=== PATIENT | female | born 1960 | race Caucasian/White ===

== ENCOUNTER 2023-12-06 18:01 | Inpatient (IN) | payer MEDICARE, OTHER, SELFPAY ==
[2023-12-06 12:05] VITALS: BP 127/88
[2023-12-06 12:42] LABS: % Eosinophils 0.2 % (0-6); % Immature Granulocytes 0.4 % (0-0.5); % Lymphocytes 27.3 % (20.5-51.1); % Monocytes 5.8 % (1.7-9.3); % Neutrophils 66.3 % (42.2-75.2); Absolute Lymphocytes 1.4 10^3/uL (1.2-3.4); Absolute Monocytes 0.3 10^3/uL (0.1-0.6); Absolute Neutrophils 3.3 10^3/uL (1.4-6.5); Hematocrit 38.7 % (37.0-47.0); Hemoglobin 13.9 g/dL (12.0-16.0); Mean Corp Hgb Conc. 35.9 g/dL (33.0-37.0); Mean Corpuscular Hgb 30.5 pg (27.0-31.0); Mean Corpuscular Volume 85.1 fL (81.0-99.0); Nucleated Red Blood Cells % 0 %; Platelet Count 142 10^3/uL (130-400); Red Blood Cell Count 4.55 10^6/uL (4.20-5.40); Red Cell Dist. Width 16.3 % (11.5-14.5)
[2023-12-06 12:55] LABS: ALT (SGPT) 258 U/L (0-35); AST (SGOT) 385 U/L (14-36); Albumin 4.2 g/dl (3.5-5.0); Alkaline Phosphatase 118 U/L (38-126); Blood Urea Nitrogen 39 mg/dl (7-17); Carbon Dioxide 26 mmol/L (22-30); Chloride 99 mmol/L (98-107); Glucose 76 mg/dl (70-99); Potassium 3.6 mmol/L (3.5-5.1); Sodium 131 mmol/L (135-145); Total Bilirubin 0.9 mg/dl (0.2-1.3); Total Protein 6.6 g/dl (6.3-8.2); eGFR > 60.00
[2023-12-06 14:43] VITALS: BMI 27.2
--- NOTE | 2023-12-06 15:34 | ED.GENMED ---
History of Present Illness
General
Chief Complaint: Weight Changes
Source: patient and family
Time Seen by Provider: 12/06/23 14:54
History of Present Illness
History of Present Illness:
63yoF with a history of paranoid schizophrenia with anorexia presenting with her for evaluation of malnutrition. Patient has a history of malnutrition and has had a feeding tube placed in past. She had her feeding tube removed in August 2023
as patient demanded to have it removed. She was about 104 pounds at the time the feeding tube was removed. She has lost 30 pounds since that time and is currently 74 pounds. Patient has very poor PO intake. She denies any vomiting. Patient was seen
by her PCP and advised to go to the ED for evaluation.
Past History
Past History
ED Past Medical History: Hypothyroidism and Psychiatric (Paranoid schizophrenia, hypothyroidism)
ED Past Surgical History: Other
Social History
Tobacco: Former smoker
Alcohol: None
Drug: None
Personal:
Living: with family
Employment: Retired
Family History
Family History: Other (Noncontributory)
Phy Exam
Physical Exam
Physical Exam:
Frail, cachectic female, ill appearing. Non-toxic.
General Physical Exam
General age: appears older than age
General Skin: warm and dry
General Habitus: cachetic and failure to thrive
General Mental: alert
Cardiovascular Exam
Cardiovascular Exam: regular rate/rhythm and no murmur
Pulmonary Exam
Pulmonary Exam: lungs clear, no respiratory distress and no crackles
Musculoskeletal Exam
Musculoskeletal Exam: other (Tardive dyskinesia noted)
Scores
Heart Failure Risk
Heart Failure Risk Score: Not Applicable
Course
Orders/Labs/Results
Orders:
Orders
12/06/23 Breakfast
Regular
At Your Request: Limited Participation
12/06/23 12:20
Complete Blood Count/With Diff Urgent
Comprehensive Metabolic Panel Urgent
Free T4 Urgent
Magnesium Urgent
Phosphorus Urgent
Comment: MAG & PHOS ADDED ON BY FLOOR 3:30PM 12-06-23
TSH Reflex To Free T4 Urgent
Comment: TSH REFLEX ADDED ON BY FLOOR 4:50PM 12-06-23
12/06/23 15:33
Electrocardiogram (*1) Urgent
Reason for Study: Other
Other Reason for Exam: malnutrition
EKG- Treatment ONCE
0.9% Sodium Chloride 500 ml [Nss] 500 ml IV BOLUS
12/06/23 15:34
Add On- LAB Urgent
Tests Added?: magnesium, phosphorus
12/06/23 16:40
Louise Hugger [Louise Hugger-Treatment] ONCE
Patient's goal temperature:: 97 F
Additional Instructions:: Temperature and skin assessment per unit protocol
12/06/23 16:49
Add On- LAB Routine
Tests Added?: TSH w/Reflex
12/06/23 17:23
Admit/Transfer Patient As Directed
Co-Sign Provider:
Level of Care: Inpatient admission
Assign to:: Medical/Surgical
Physician / Group: Margo
Diagnosis: Malnutrition
Reason for Hospitalization: Malnutrition
Expected length of stay greater than two midnights?: Yes
ELOS- Estimated Length of Stay in days: 3
I certify the patient meets the requirements for IP care: Yes
12/06/23 17:24
Code Status As Directed
Resuscitation Status: Do not resuscitate
Reached after discussion with pt or family/Healthcare POA: Yes
DNR Bracelet Application ONCE
12/06/23 18:19
Acetaminophen [Tylenol] 650 mg PO Q4HPRN PRN
12/06/23 18:19
Case Management Consult ONCE
Case Management Consult: Hospice
Hospice: Evaluation and treat
DIETARY CONSULT Routine
Reason for Consult: Malnutrition
PSYCHIATRY CONSULT Routine
Consulting Provider: Mukul Echevarria
Was physician already notified: Yes
Activity As Directed
Activity Level: Out of Bed-Early Mobility
With Assistance
I&O [Intake/ Output] As Directed
Frequency: q12h
Pneumatic Compression Sleeves As Directed
Type: Knee high
Vital Signs As Directed
Frequency: Per unit guidelines
Warming [place] [Heating/Cooling [place]] As Directed
Mode:: Automatic
Type of thermoregulation:: Heating
PATIENT'S Goal Temperature:: 96.8 F (36 C)
Comments/Additional Instructions:: Temperature and skin assessment per unit protocol
Weight As Directed
Frequency: Daily
Ot Eval And Treat Routine
Pt Eval And Treat Routine
Activity Level: Out of Bed-Early Mobility
DX Deep Vein Thrombosis Video Routine
12/06/23 19:00
Dextrose 5%/0.9%Sodchl 1000 ml [D5/0.9% Sodium Chloride] 1,000 ml POTASSIUM PHOSPHATE 1mEq=0.7mM [Potassium Phosphate] 10 meq IV 80 mls/hr
12/06/23 22:00
Risperidone [Risperdal] 6 mg PO HS
12/07/23 06:00
Complete Blood Count/No Diff IN AM
Comprehensive Metabolic Panel IN AM
Magnesium IN AM
Phosphorus IN AM
12/07/23 08:00
Cholecalciferol (Vitamin D3) [VITAMIN D3 (cholecalciferol)] 25 mcg PO DAILY
Multivitamin [Theragran] 1 tablet PO DAILY
12/07/23 12:00
Levothyroxine [Synthroid] 125 mcg PO SUTUTHSA@1200
12/08/23 12:00
Levothyroxine [Synthroid] 150 mcg PO MOWEFR@1200
Abnormal Lab Results
12/06/23
12:20
RDW 16.3 H %
(11.5-14.5)
MPV 11.0 H fL
(7.4-10.4)
Sodium 131 L mmol/L
(135-145)
BUN 39 H mg/dl
(7-17)
Phosphorus 2.0 L mg/dl
(2.5-4.5)
AST 385 H U/L
(14-36)
ALT 258 H U/L
(0-35)
TSH (Reflex) 145.00 H uIU/ml
(0.47-4.68)
Free T4 0.45 L ng/dl
(0.78-2.19)
12/06/23 12:20
12/06/23 12:20
Vital Signs
Initial and Last Documented VS:
Initial Vital Signs
Pulse Resp BP Pulse Ox
64 16 127/88 93
12/06/23 12:05 12/06/23 12:05 12/06/23 12:05 12/06/23 12:05
Last Documented Vital Signs
Temp Pulse Resp BP Pulse Ox
95.2 F L 65 16 87/57 98
12/06/23 19:24 12/06/23 23:04 12/06/23 23:04 12/06/23 23:04 12/06/23 23:04
MDM/Problems Addressed
Differential Diagnosis Includes:
63yoF presenting for malnutrition. Hx of paranoid schizophrenia and anorexia. Weight loss of 30 pounds over the past 3 months since her feeding tube was removed. Sent to ED by PCP. She is severely malnourished on exam. Rectal temperature is 94.8.
Remainder of vitals are stable. Differential diagnosis includes but is not limited to: malnutrition, failure to thrive, dehydration, electrolyte abnormality
Labs obtained in triage. Transaminitis noted with AST of 385 and ALT of 258. Sodium 131. Remainder of electrolytes and creatinine normal. Will place on louise hugger, order IV fluid bolus, and admit for further management.
*Critical Care Note
Total Time (30-74mins, 75-104mins- exclusive of procedures): Not Applicable
ED Attending Note
-
Portions of this chart may have been created with voice recognition software.� Occasional wrong word or��sound alike� substitutions may have occurred due to the inherent limitations of voice recognition software.
Discharge Plan
Departure
Patient Disposition: Admit
Date of Disposition: 12/06/23
Time of Disposition: 17:03
Presentation/result/management discussed w/ accepting MD/DO: Hospitalist
Discharge Problem:
Malnutrition, Hypothermia, Transaminitis
Interventions
Interventions:
*General Assessment Last Done: 12/06/23 14:43
*Neglect/Abuse Screening Last Done: 12/06/23 14:43
ED- Fall Risk Assessment Last Done: 12/06/23 14:43
*Nursing Disposition Last Done: 12/06/23 18:17
Discharge Date and Time
Discharge Date/Time: 12/06/23 18:18
[2023-12-06 15:59] VITALS: BP 130/94
[2023-12-06 16:05] LABS: Magnesium 2.2 mg/dl (1.6-2.3)
[2023-12-06 16:54] VITALS: BMI 12.3
[2023-12-06] MEDS: NSS 500 IV (16:55)
--- NOTE | 2023-12-06 17:26 | W.PN.UPDATE ---
Update Note
Progress Note Update
I saw and examined the patient.
The SHOTGUN SHELL ASSEMBLY MACHINE OPERATOR or PA's note was reviewed and I agree with the note.
Comment: 63-year-old female who presents with weight loss.
130/94, 50, 18, 94.8 �F, 97% RA
NAD, awake and alert, appears chronically ill and severely malnourished/cachectic/emaciated
CN2-12 intact, Tardive dyskinetic movements of the mouth and tongue
EOMI/PERRLA, no scleral icterus
jose, reg rhythm, normal S1/S2
CTAB anteriorly
+BS/soft/NT/ND
Severe protein calorie malnutrition due to paranoid schizophrenia and anorexia nervosa:
-Patient had a PEG tube which was removed because, as per her , she 'threatened to pull it out.'
-Recently lost 30 pounds
-Refusing reinsertion of PEG tube
-Consult psychiatry
-In the ER the patient confirms that she would like to be DNR. This was witnessed by the who agrees. I specifically reviewed CPR, defibrillation/cardioversion, intubation with mechanical ventilation, and acute vasoactive medications and
the patient reported that she did not want any of these methods of resuscitation.
-IVF support (with K-phos for hypophosphatemia)
-c/s hospice
Hyponatremia, mild
--- NOTE | 2023-12-06 17:37 | HPS.HSE ---
Family Physician
-
Family Physician: Nuvia Mccartney
Chief Complaint
-
Weight Loss
History of Present Illness
Patient is a 63-year-old female past medical history of paranoid schizophrenia, anorexia nervosa and hypothyroidism who presents with weight loss. Patient was admitted here at [facility] in August 2022 at which time she had a feeding tube
placed due to severe malnutrition. Due to patient's psychiatric issues she insisted on having the PEG tube removed. Feeding tube was removed in August 2023. Since that time patient has lost approximately 30 pounds. She saw her primary care
provider today in the office who sent her to the emergency department for evaluation. Patient denies abdominal pain, nausea, or vomiting.
Medical History
Past Medical History
Past Medical History: Reports Other
Additional Past Medical History:
Paranoid Schizophrenia / Anorexia Nervosa
Hypothyroidism
Severe Protein Calorie Malnutrition
Past Surgical History: Reports None
Social History
Tobacco: Former Smoker
Personal:
Living: With Family
Family History
Family History: Not pertinent
Allergies / Home Medications
Allergies reflects when Allergies were last updated in [facility].
Home Medications with original date entered in [facility]
Allergy/Medication List:
Allergies
Allergy/AdvReac Type Severity Reaction Status Date / Time
No Known Allergies Allergy Verified 12/06/23 12:09
Home Medications
risperidone 2 mg tablet (Risperdal) 6 mg PO HS 08/11/22
cholecalciferol (vitamin D3) 25 mcg (1,000 unit) tablet 25 mcg PO DAILY 12/06/23
levothyroxine 125 mcg tablet (Synthroid) 125 mcg PO SUTUTHSA@119912/06/23
levothyroxine 150 mcg tablet 150 mcg PO MOWEFR@1200 12/06/23
therapeutic multivitamin 1 tab PO DAILY 12/06/23
Review of Systems
-
A 12 point ROS was completed and negative except as noted: Yes
Constitutional: Denies Fever or Chills
Respiratory: Denies Cough or Trouble Breathing
Cardiac: Denies Chest Pain or Palpitations
Abdomen/GI: Reports See HPI
Physical Exam
Vital Signs
Vital Signs
Temp Pulse Resp BP Pulse Ox
94.8 F L 50 18 130/94 97
12/06/23 16:15 12/06/23 15:59 12/06/23 15:59 12/06/23 15:59 12/06/23 17:04
Physical Exam
General: Comfortable, Conversant and Cachectic
HEENT: Anicteric and Other (Dry Mucous Membrane - Temporal Wasting)
Respiratory: Clear and Non Labored Respirations
Cardiac: S1/S2 and Regular Rhythm
GI: Soft and Non Tender
Rectal: Deferred by Provider
Musculoskeletal: No Clubbing and No Cyanosis
Skin: Warm and Dry
Neuro: Awake, Alert, Oriented, Nonfocal/grossly intact and Other (Tardive Dyskinesia)
Psych: Calm
Laboratory Results
-
12/06/23 12:20
12/06/23 12:20
Laboratory Results
Total Bilirubin 0.9 mg/dl (0.2-1.3) 12/06/23 12:20
AST 385 U/L (14-36) H 12/06/23 12:20
ALT 258 U/L (0-35) H 12/06/23 12:20
Alkaline Phosphatase 118 U/L (38-126) 12/06/23 12:20
Data Reviewed
-
Lab Data: Labs Reviewed by me
Impression/Plan
-
Weight Loss with Severe Protein Calorie Malnutrition
Hyponatremia
Hypophosphatemia
-At this time patient / family are refusing PEG tube
-Continue IVFs overnight
-Consult dietary
-Consult hospice
Paranoid Schizophrenia / Anorexia Nervosa
-Consult Psych
-Continue Risperdal
Hypothyroidism
-Check TSH
-Continue levothyroxine
DVT proph: SCDs
Code Status: DNR
[2023-12-06 18:35] VITALS: BP 118/77
[2023-12-06] MEDS: POTASSIUM PHOSPHATE 1002.2727 MEQ IV (19:50)
[2023-12-06 20:00] LABS: Free T4 0.45 ng/dl (0.78-2.19)
[2023-12-06] MEDS: REMERON 30 MG PO (22:03)
[2023-12-06] MEDS: RISPERDAL 6 MG PO (22:05)
[2023-12-06 23:04] VITALS: BP 108/52
[2023-12-06 23:17] VITALS: BMI 11.2
[2023-12-07] VITALS (8 sets, daily range): BP systolic 87–109; BP diastolic 52–75; PULSE 56; O2SAT 100; BMI 11.2
[2023-12-07] MEDS: VITAMIN D3 (cholecalciferol) 25 MCG PO (08:09)
[2023-12-07] MEDS: THERAGRAN 1 TABLET PO (08:09)
[2023-12-07] MEDS: POTASSIUM PHOSPHATE 1002.2727 MEQ IV (08:09)
[2023-12-07] MEDS: ProAmatine 5 MG PO (08:34)
[2023-12-07 08:46] LABS: Hematocrit 30.5 % (37.0-47.0); Hemoglobin 10.8 g/dL (12.0-16.0); Mean Corp Hgb Conc. 35.4 g/dL (33.0-37.0); Mean Corpuscular Hgb 30.2 pg (27.0-31.0); Mean Corpuscular Volume 85.2 fL (81.0-99.0); Red Blood Cell Count 3.58 10^6/uL (4.20-5.40); Red Cell Dist. Width 16.2 % (11.5-14.5); White Blood Cell Count 3.4 10^3/uL (4.8-10.8)
[2023-12-07 09:12] LABS: ALT (SGPT) 185 U/L (0-35); AST (SGOT) 236 U/L (14-36); Albumin 2.8 g/dl (3.5-5.0); Alkaline Phosphatase 67 U/L (38-126); Blood Urea Nitrogen 33 mg/dl (7-17); Calcium 7.9 mg/dl (8.4-10.2); Carbon Dioxide 28 mmol/L (22-30); Chloride 106 mmol/L (98-107); Estimated Creatinine Clearance 29 ml/min; Glucose 52 mg/dl (70-99); Magnesium 2.2 mg/dl (1.6-2.3); Phosphorus 2.9 mg/dl (2.5-4.5); Sodium 134 mmol/L (135-145); Total Bilirubin 0.8 mg/dl (0.2-1.3); Total Protein 4.9 g/dl (6.3-8.2); eGFR > 60.00
[2023-12-07 09:53] LABS: Mean Platelet Volume 11.3 fL (7.4-10.4); Platelet Count 106 10^3/uL (130-400)
--- NOTE | 2023-12-07 10:49 | CM ---
Addendum entered by Gladys Freedman 12/07/23 15:57:
Emotional support provided.
Patient and spouse will discuss hospice with the rest of the family.
Patient and spouse aware of CM availability should needs arise.
Addendum entered by Gladys Freedman 12/07/23 15:01:
Psychiatry in to see.
f/u with spouse and they would like Hospice consult.
Hospice consulted via TT.
Original Note:
Patient seen bedside with spouse.
Patient IA completed.
Patient lives in a 1 story home with bed and bath on second floor.
patient does not use assistive devices.
patient still takes care around the house.
Per spouse feeding tube removed at patient request in August.
30 pound weight loss since then.
Interested in hospice consultation but wishes to speak with psychiatry first.
PCP:Sherrill
Pharmacy: [facility]
Plan: home with possible hospice
[2023-12-07 12:11] LABS: Glucose - Point of Care 67 mg/dl (70-99)
--- NOTE | 2023-12-07 12:18 | PTCARENOTE ---
Notified provider that the patient was hypoglycemic on morning labs, and when checking in early afternoon, her BG was 67. Patient given juice and encouraged to drink. D5NS ordered IVF continued at 80mL/hr. The patient has very poor PO intake.
--- NOTE | 2023-12-07 12:29 | W.PN.HOSP.TC ---
Today's Communication/Plan
-
Monitor vital signs
see plan
Continue with D5 normal saline
Monitor sugars
Psychiatry to see
environmental research project manager evaluation
Failure to thrive
Assessment / Plan
Assessment / Plan
General: Comfortable, Conversant and Cachectic
HEENT: Anicteric and Other (Dry Mucous Membrane - Temporal Wasting)
Respiratory: Clear and Non Labored Respirations
Cardiac: S1/S2 and Regular Rhythm
GI: Soft and Non Tender
Rectal: Deferred by Provider
Musculoskeletal: No Clubbing and No Cyanosis
Skin: Warm and Dry
Neuro: Awake, Alert, Oriented, Nonfocal/grossly intact and Other (Tardive Dyskinesia)
Psych: Calm
Weight Loss with Severe Protein Calorie Malnutrition
Hyponatremia
Hypophosphatemia
Failure to thrive
-At this time patient / family are refusing PEG tube
-Continue IVFs'; has hypoglycemia however asymptomatic.
-Consult dietary
-Consult hospice
Elevated LFTs
monitor
Pancytopenia
Monitor
Hyponatremia
Monitor
Paranoid Schizophrenia / Anorexia Nervosa
-Consult Psych
-Continue Risperdal
Not sure how much per psychiatry illness is making her failure to thrive. Will see what psychiatry is to offer
Hypothyroidism
TSH very high, low free T4. Increase Synthroid to 150
-Continue levothyroxine
DVT proph: SCDs
Code Status: DNR
I spent a total of 53 minutes with the patient or on the floor. More than 50% of this time involved counseling and coordination of care.
Spoke with patient and in length. Patient at this time does not want any feeding tube. environmental research project manager consulted for hospice. Psychiatry still yet to see
Anticipated Discharge: 24 - 48 hours
Subjective/Interval History
-
Date of Service: December 07, 2023
Denies pain
Objective Data
-
Labs:
Laboratory Results
12/07/23
07:58
WBC 3.4 L
Hgb 10.8 L D
Hct 30.5 L
Plt Count 106 L D
Sodium 134 L
Potassium 4.0
Chloride 106
Carbon Dioxide 28
BUN 33 H
Creatinine 1.0
Glucose 52 L*
Calcium 7.9 L
Total Bilirubin 0.8
AST 236 H
ALT 185 H
Alkaline Phosphatase 67
Vital Signs:
Vital Signs
Temp Pulse Resp BP Pulse Ox
97.1 F 53 18 102/68 99
12/07/23 07:02 12/07/23 11:28 12/07/23 07:00 12/07/23 11:28 12/07/23 07:00
I&O
12/06/23 12/07/23 12/08/23
06:59 06:59 06:59
Intake Total 1440 / 1440
Balance 1440 / 1440
[2023-12-07 12:32] LABS: Glucose - Point of Care 89 mg/dl (70-99)
[2023-12-07] MEDS: D5/0.9% SODIUM CHLORIDE 1000 IV ×2 (13:03→23:28)
--- NOTE | 2023-12-07 14:28 | PN.CDI ---
CDI
- -
CDI:
Physician Documentation Request
Admit Date: 12/06/23 18:[address] Duran,
Clinical Indicators:
Patient admitted with Weight Loss with Severe Protein Calorie Malnutrition
12/05, 12/06 RN skin/wound assessment: Sacrum Stage 2 Pressure Injury, POA
Physician documentation of the type and location of wounds is required for compliant documentation. Based on the above clinical findings and your assessment, please provide the following in your progress note:
1. Location of the ulcer/wound, including laterality.
2. Type (etiology) of ulcer/wound:
- Pressure (decubitus) ulcer
- Other
- Unable to determine
3. If a pressure ulcer, please also include the stage* of the ulcer:
- Stage 1 - Skin intact, non-blanchable redness
- Stage 2 - Partial thickness loss of dermis, includes intact or open blister
- Stage 3 - Full thickness tissue not including bone, tendon or muscle
- Stage 4 - Full thickness tissue loss, including exposed bone, tendon or muscle
- Unstageable - Full thickness loss in which the base of the ulcer is covered by slough (yellow, perdomo, barnett, green or brown) and/or eschar (perdomo, brown or black) in the wound bed.
- Unable to determine
Use of terms such as suspected, likely, concern for, or probable (associated with a specific diagnosis that is being evaluated, monitored, or treated as if it exists) are acceptable and can be coded in the inpatient setting, when documented at the
time of discharge.
Thank you,
DELIA Back RN
CDI Specialist
available via tiger text
Please use your independent medical judgment in providing your response.
*Source: National Pressure Ulcer Advisory Panel (NPUAP)
[2023-12-07] MEDS: SYNTHROID 150 MCG PO (14:45)
--- NOTE | 2023-12-07 14:48 | HOSPNOTE ---
Addendum entered by Miladys Nur RN 12/07/23 15:27:
Spoke with spouse and patient and discussed hospice and the philosophy. The spouse needs some time to accept and will get in touch with me tomorrow with a decision. Attending and CM aware.
Original Note:
Hospice consult received, will speak with patient and spouse. More information to follow.
--- NOTE | 2023-12-07 15:36 | CS.PSYCHR ---
Consult Summary - Psychiatry
-
Pt is a 63 yo female with history of schizophrenia vs depression with psychotic features, anorexia nervosa, who presents with significant weight loss due to calorie restriction. Patient was admitted here at [facility] in August 2022 for
severe malnutrition, weight 82 lb, had PEG tube placed. Pt was doing marginally better, until she insisted on having the PEG tube removed in August 2023. Since that time patient has lost approximately 30 pounds; was referred in by her PCP;
reports her BP at the office was 70/40. Pt seen in upright position in bed, very cachectic. Pt calm, making eye contact, with somewhat vacant gaze. Pt states clearly that she does not want a feeding tube, does not want any IV nutrition, does not
want nutrition shakes, although she states she wants to 'be better.' Pt ate cottage and peach salad for lunch. She states she does not feel anything regarding her recent weight loss. reports pt feels the need to limit her intake more
since she can no longer exercise due to joint issues. tried to take pt to Eating d/o therapist for her long- term behaviors/issues, but pt cancelled after the first session. Pt states 'I don't know' regarding any Eating d/o treatment
facility. Pt declines help from a java developer with security clearance or poison information specialist. Pt states she has told her about her wishes, although she reportedly does not trust anyone to make decisions on her behalf. reports after the PEG tube was removed, pt
steadily reduced her food intake, despite his encouragement. Hospice is reportedly coming to do an assessment/being considered.
Psych Hx: major depression with psychosis, onset about 10 to 11 years ago. Haldol trial caused flat affect/blank stare per ; other agents tried include Geodon- all names not available. Abilify not effective. Pt reportedly developed
facial TD after recent re-trial of Haldol. Last psychiatrist was Dr Gonzalez in [facility] until he closed the practice
Several previous inpatient psych admissions- [facility] last fall. Hx of ECT at [place] 2019 with short-term improvement
long hx-many years- of calorie restriction, viewing herself as overweight, and compulsive exercising; has never accepted treatment
SH: for many years, lives with . Substance use denied
MSE: alert, making eye contact with vacant/detached/blunted affect. Very cachectic. Mood neutral. Pt endorsed passive wish to , stated she doesn't feel the need to be here anymore. No agitation, no overt signs of active psychosis. Pt has
facial grimacing/TD. Insight is poor regarding eating behaviors, appears to have basic understanding of her medical situation, is very clear in stating her wishes.
Imp: Schizoaffective d/o, depressed type, appears fairly stable on psychotropic medications
Anorexia Nervosa, with severe weight loss/cachectic condition due to poor po intake; very chronic and pt resistant to any treatment
Rec: Continue current medications- Risperidone 6 mg HS and Remeron 30 mg HS. Psychiatric admission is not an option in her current medical condition. Consider Eating d/o facility, although it would have to be voluntary and pt is unlikely to
agree. Hospice to evaluate due to pt's refusal of treatment interventions. Pt appears to have limited, but basically intact capacity for decisions.
Psychiatry will follow
[2023-12-07] MEDS: REMERON 30 MG PO (21:40)
[2023-12-07] MEDS: RISPERDAL 6 MG PO (21:41)
[2023-12-08 02:54] LABS: Glucose - Point of Care 88 mg/dl (70-99)
[2023-12-08 06:00] VITALS: BMI 11.5
[2023-12-08 07:49] VITALS: BP 99/63
[2023-12-08 07:57] LABS: % Basophils 0.3 % (0-2); % Eosinophils 0.9 % (0-6); % Immature Granulocytes 0.6 % (0-0.5); % Lymphocytes 40.1 % (20.5-51.1); % Monocytes 6.5 % (1.7-9.3); % Neutrophils 51.6 % (42.2-75.2); Absolute Lymphocytes 1.3 10^3/uL (1.2-3.4); Absolute Monocytes 0.2 10^3/uL (0.1-0.6); Absolute Neutrophils 1.7 10^3/uL (1.4-6.5); Hematocrit 31.3 % (37.0-47.0); Mean Corp Hgb Conc. 35.1 g/dL (33.0-37.0); Mean Corpuscular Hgb 30.7 pg (27.0-31.0); Mean Corpuscular Volume 87.4 fL (81.0-99.0); Mean Platelet Volume 11.7 fL (7.4-10.4); Nucleated Red Blood Cells % 0 %; Platelet Count 95 10^3/uL (130-400); Red Blood Cell Count 3.58 10^6/uL (4.20-5.40); Red Cell Dist. Width 16.6 % (11.5-14.5); White Blood Cell Count 3.2 10^3/uL (4.8-10.8)
[2023-12-08] MEDS: D5/0.9% SODIUM CHLORIDE 1000 IV (08:22)
[2023-12-08] MEDS: THERAGRAN 1 TABLET PO (08:22)
[2023-12-08] MEDS: VITAMIN D3 (cholecalciferol) 25 MCG PO (08:22)
[2023-12-08 09:37] LABS: ALT (SGPT) 170 U/L (0-35); AST (SGOT) 206 U/L (14-36); Albumin 2.8 g/dl (3.5-5.0); Alkaline Phosphatase 64 U/L (38-126); Blood Urea Nitrogen 27 mg/dl (7-17); Calcium 8.2 mg/dl (8.4-10.2); Carbon Dioxide 23 mmol/L (22-30); Chloride 110 mmol/L (98-107); Estimated Creatinine Clearance 34 ml/min; Glucose 64 mg/dl (70-99); Potassium 3.9 mmol/L (3.5-5.1); Sodium 136 mmol/L (135-145); Total Bilirubin 0.7 mg/dl (0.2-1.3); eGFR > 60.00
--- NOTE | 2023-12-08 10:57 | HOSPNOTE ---
Spoke with Ramirez the spouse and the plan is discharge to home and then the spouse will call me when hospice is needed. He feels comfortable with the plan and will call. Attending aware of plan and in agreement.
--- NOTE | 2023-12-08 11:54 | W.PN.HOSP.TC ---
Addendum entered and electronically signed by Dat Duran MD 12/08/23 12:16:
Time of discharge 39 mins
Original Note:
Today's Communication/Plan
-
monitor vital signs and see plan
Discharge today
Patient will follow-up with PCP and hospice outpatient
Patient prefers to go home
midodrine
Assessment / Plan
Assessment / Plan
General: Comfortable, Conversant and Cachectic
HEENT: Anicteric and Other ( Temporal Wasting)
Respiratory: Clear and Non Labored Respirations
Cardiac: S1/S2 and Regular Rhythm
GI: Soft and Non Tender
Musculoskeletal: No Clubbing and No Cyanosis
Neuro: Awake, Alert, Oriented, Nonfocal/grossly intact and Other (Tardive Dyskinesia)
Psych: Calm
Weight Loss with Severe Protein Calorie Malnutrition
Hyponatremia
Hypophosphatemia
Failure to thrive pain
Electrolytes have now been improving
-At this time patient /family are refusing PEG tube
-Continue IVFs'; has hypoglycemia however asymptomatic.
Patient and spouse already spoke with Miladys from hospice. Patient at this time is not ready for hospice however wants to meet with them outpatient. Patient's family already has information regarding hospice. Patient has been seen by psychiatry
this hospitalization. Continue with current medications. Plan to discharge home.
midodrine
Elevated LFTs
monitor
Pancytopenia
Monitor
Hyponatremia
Monitor; improved
Sacrum Stage 2 Pressure Injury, POA
Paranoid Schizophrenia / Anorexia Nervosa
-Consult Psych
-Continue Risperdal
Per psychiatry patient has limited but basically intact capacity for decisions. Patient at this time wants to go home
Hypothyroidism
TSH very high, low free T4. Increase Synthroid to 150
-Continue levothyroxine
Patient advised to repeat levels in 4 weeks
DVT proph: SCDs
Code Status: DNR
Spoke with patient and in length. Patient at this time does not want any feeding tube.Patient and spouse already spoke with Miladys from hospice. Patient at this time is not ready for hospice however wants to meet with them outpatient.
Patient's family already has information regarding hospice. Patient has been seen by psychiatry this hospitalization. Continue with current medications. Plan to discharge home.
Anticipated Discharge: Today
Subjective/Interval History
-
Date of Service: December 08, 2023
Denies pain
Objective Data
-
Labs:
Laboratory Results
12/08/23
06:51
WBC 3.2 L
Hgb 11.0 L
Hct 31.3 L
Plt Count 95 L
Sodium 136
Potassium 3.9
Chloride 110 H
Carbon Dioxide 23
BUN 27 H
Creatinine 0.9
Glucose 64 L
Calcium 8.2 L
Total Bilirubin 0.7
AST 206 H
ALT 170 H
Alkaline Phosphatase 64
Vital Signs:
Vital Signs
Temp Pulse Resp BP Pulse Ox
97.9 F 52 17 99/63 99
12/08/23 11:00 12/08/23 07:49 12/08/23 07:49 12/08/23 07:49 12/08/23 07:49
I&O
12/07/23 12/08/23 12/09/23
06:59 06:59 06:59
Intake Total 1440 / 1440 1320 / 1320 1200 / 1200
Balance 1440 / 1440 1320 / 1320 1200 / 1200
--- NOTE | 2023-12-08 12:02 | W.PN.UPDATE ---
Update Note
Progress Note Update
patient seen chart reviewed. spoke with nursing. at bedside. mrs harper is known to me from prior visits to . tells me he hopes that mrs harper will be dc today. they have all but decided to go with hospice at this point. mr harper was
very pleased with his introduction to hospice via consult. he hopes that it will enable them to be at peace for the rest of mrs harper's days. mr harper spoke about their life together. they were c hildhood sweethearts for 25 yrs but together
since their teenage years having met at [employer]. he spoke of their children and two grandchildren. he spoke of feeling abandoned when mrs harper's psychiatrist disappeared suddenly presumably to illness. he was tearful as he spoke. efforts to engage
her in the discussion did not prove particularly fruitful she did answer'yes ' to a few questions eg is what mr harper is describing how you see things going....but largely was quietly staring straight ahead. she appears to be in no acute distress
at least physically. hopes they will leave hospital today. no changes made in her meds. one of h's worries was not being able to get mrs harper's psych meds but he was assured by hospice this would not be an issue.
--- NOTE | 2023-12-08 12:07 | CM ---
Met with patients spouse bedside.
patient for d/c home today.
Spouse denies home care needs.
Family/children supportive and will assist.
Family to decide on hospice services and will contact when needed.
IMM completed.
Plan:home today with information for Hospice.
--- NOTE | 2023-12-08 12:15 | W.DCSUMMARY ---
Discharge Summary
Discharge Data
Date of Admission: 12/06/23
Date of Discharge: 12/08/23
-
Pending Results: No
Hospital Course
63-year-old female with past medical history of schizophrenia, anorexia, hypothyroidism came to the hospital with increased weight loss, failure to thrive and electrolyte disturbances. Patient used to be on feeding tube which was recently taken out
since patient does not want to have any PEG tube. Patient was initially started on fluids along with electrolyte repletion's. Patient continues to refuse p.o. intake at times and was eating very little. Her BMI was 11.5. Patient and her spouse
showed interest in speaking with hospice. build and release manager was then consulted for hospice. Hospice met with patient and spouse and answered all their questions. Patient was unable to decide if she wants to go home on hospice during this
hospitalization however she was interested to follow-up with them outpatient. Once patient symptoms and electrolytes continue to improve, she was then discharged home with instructions to follow-up with PCP and hospice outpatient.
Discharge Plan
-
Patient Disposition: Home (Routine Discharge)
Discharge Diagnosis/Procedures: Weight Loss with Severe Protein Calorie Malnutrition
Hyponatremia
Hypophosphatemia
Failure to thrive
Elevated LFTs
Hypothyroidism
Anorexia Nervosa
Condition: Good
Diet: As tolerated
Activity: As tolerated
Driving Restrictions: As prior to admission
Bathing Restrictions: None
Blood Work: Repeat TSH with reflex to free T4 in 4 weeks
Referrals:
Nuvia Mccartney MD [Family Provider] - in less than 1 week
Mukul Echevarria MD [Active] -
Prescriptions:
New
midodrine 5 mg Tablet
5 mg PO TID@0800,1300,1800 Qty: 90 0RF
mirtazapine 30 mg Tablet
30 mg PO HS Qty: 30 0RF
Continued
therapeutic multivitamin Tablet
1 tab PO DAILY
cholecalciferol (vitamin D3) 25 mcg (1,000 unit) Tablet
25 mcg PO DAILY
risperidone [Risperdal] 2 mg Tablet
6 mg PO HS Qty: 90 0RF
Changed
levothyroxine 150 mcg tablet
150 mcg PO DAILY Qty: 0 0RF
Discontinued
levothyroxine [Synthroid] 125 mcg tablet
125 mcg PO SUTUTHSA@1200
Remeron 30 mg tablet
30 mg PO HS
Discharge Orders:
Discharge Patient (As Directed); Ordered 12/08/23
Ordered By: Dat Duran
Discharge Date and Time
Discharge Date/Time: 12/08/23 13:16
Print Language: BOLIVIAN
[2023-12-08] MEDS: ProAmatine 5 MG PO (12:41)
[2023-12-08 12:49] VITALS: BP 113/75
--- NOTE | 2023-12-08 13:06 | PTCARENOTE ---
[facility]n [employer] branch lending officer- Patient cleared for discharge, instructions provided. Patient's requested scripts for remeron #30, risperidone #90. Boyle texted Maura.
== END 2023-12-08 13:16 | disposition home or self-care (01) | DRG 883 ==
LOC: 4 WEST ACU 18:01
PROVIDERS: Emergency Medicine; Physician Assistant Medical; ADMITTING PHYSICIAN Internal Medicine; ATTENDING PHYSICIAN Internal Medicine; EMERGENCY PHYSICIAN Emergency Medicine; FAMILY PHYSICIAN Family Medicine; OTHER PHYSICIAN Psychiatry & Neurology Psychiatry
DX: F50.00 Anorexia nervosa, unspecified (principal); E43 Unspecified severe protein-calorie malnutrition; Z68.1 Body mass index [BMI] 19.9 or less, adult; E87.1 Hypo-osmolality and hyponatremia; R64 Cachexia; D61.818 Other pancytopenia; F20.0 Paranoid schizophrenia; E83.39 Other disorders of phosphorus metabolism; R62.7 Adult failure to thrive; R74.01 Elevation of levels of liver transaminase levels; E03.9 Hypothyroidism, unspecified; R68.0 Hypothermia, not associated with low environmental temperature; Z66 Do not resuscitate; L89.152 Pressure ulcer of sacral region, stage 2; Z87.891 Personal history of nicotine dependence
CPT/HCPCS: 80053; 82962; 83735; 84100; 84439; 84443; 85025; 85027; 93005; 97163; 97167; 99285